=== PATIENT | female | born 1965 | race Caucasian/White ===

== ENCOUNTER 2016-03-25 12:15 | Emergency (ER) | payer SELFPAY ==
--- NOTE | 2016-03-25 13:44 | EKG ---
[facility] [address] [place] [address] Test Date: 2016-03-25 Test Time: 12:32:02 Pat Name: SHALINI PACHECO Department: Room: Gender: F [employer]aker Machine Tender: : 1965 Requested By: ROSS BAI Order Number: [id number] Reading MD: Andrey Brody Measurements Intervals [place] Rate: 79 P: 0 GA: 138 QRS: 23 QRSD: 96 T: 10 QT: 414 QTc: 476 Interpretive Statements SINUS RHYTHM PROLONGED QT Electronically Signed On 03-25-2016 15:19:54 SUGAR GRINDER by Andrey Brody
--- NOTE | 2016-03-25 13:48 | RAD ---
Exam performed: One view chest. Indication: Chest pain and weakness for one week. High blood pressure Date of Service: 03/25/2016 3:21 PM Comparison: 10/25/09. Single AP upright portable view chest findings: Cardiomediastinal silhouette is within limits of normal. No acute infiltrates, effusion or pneumothorax is detected. The bony structures are normal. Impression: No acute cardiopulmonary process is detected.
[2016-03-25 13:56] LABS: BILIRUBIN,URINE NEGATIVE (NEG); GLUCOSE,URINE >=1000 mg/dL (NEG); NITRITE,URINE NEGATIVE (NEG); PROTEIN,URINE NEGATIVE (NEG-TRACE); UROBILINOGEN,URINE 0.2 mg/dL (0.2 mg/dL)
[2016-03-25 13:57] LABS: BASO # 0.1 x10^3/uL (0.0-0.2); BASO % 1 % (0-3); EOS % 1 % (0-3); HEMATOCRIT 42.8 % (36.0-47.0); HEMOGLOBIN 14.1 g/dL (12.0-15.5); LYMPH # 2.3 x10^3/uL (1.0-4.8); LYMPH % 33 % (24-48); MEAN CORPUSCULAR HEMOGLOBIN 29 pg (25-35); MEAN CORPUSCULAR HGB CONC 33 g/dL (31-37); MEAN CORPUSCULAR VOLUME 86 fL (79-100); MONO % 8 % (0-9); NEUT % 57 % (31-73); PLATELET COUNT 283 x10^3/uL (140-400); RED BLOOD COUNT 4.97 x10^6/uL (3.50-5.40); RED CELL DISTRIBUTION WIDTH 13.7 % (11.5-14.5)
[2016-03-25 14:02] LABS: BARBITURATES NEG (NEG); BENZODIAZEPINES NEG (NEG); CANNABINOIDS NEG (NEG); COCAINE NEG (NEG); METHADONE NEG (NEG); OPIATES NEG (NEG); PHENCYCLIDINE NEG (NEG)
[2016-03-25 14:03] LABS: ETHANOL, URINE NEG (NEG)
[2016-03-25 14:08] LABS: CREATININE 0.8 mg/dL (0.6-1.0); GFR 76.6
[2016-03-25 14:14] LABS: ALBUMIN 3.7 g/dL (3.4-5.0); DIRECT BILIRUBIN 0.1 mg/dL (0.0-0.2); TOTAL BILIRUBIN 0.7 mg/dL (0.2-1.0); TOTAL PROTEIN 7.4 g/dL (6.4-8.2)
[2016-03-25 14:27] LABS: BACTERIA,URINE FEW /HPF (0-FEW); RBC,URINE 20-40 /HPF (0-2); SQUAMOUS EPITHELIAL CELL,UR MOD /LPF; WBC,URINE OCC /HPF (0-4)
--- NOTE | 2016-03-25 14:57 | ED.ADGEN ---
Past Medical History Past Medical History: Constipation, Diabetes-Type II, Hypertension, Migraines, MRSA, Additional Disease Additional Past Medical Histor: alopecia totalum, melanoma x2, herniated discs , vertigo Past Surgical History: Appendectomy, Cholecystectomy, Tonsillectomy Additional Past Surgical Histo: partial hysterectomy, herniated discs Alcohol Use: Occasionally Drug Use: None Adult General Chief Complaint Chief Complaint: CHEST PAIN HPI HPI Patient is a 50 year old female presents emergency department complaining of right-sided chest pain. She describes it as a "pressure or burning". She has had it intermittently for the last 1 week. It is gotten worse today. She denies any rashes. She did have a recent upper respiratory infection. She reports significant increase in fatigue over the last several weeks as well. She tells me she has had cardiac workups in the past including normal stress test. She does report increased stress in her life generally at this time. Denies any nausea, vomiting, or diaphoresis. Review of Systems Review of Systems Constitutional: Denies fever or chills. [] Eyes: Denies change in visual acuity. [] HENT: Denies nasal congestion or sore throat. [] Respiratory: Denies cough or shortness of breath. [] Cardiovascular: Denies chest pain or edema. [] GI: Denies abdominal pain, nausea, vomiting, bloody stools or diarrhea. [] : Denies dysuria. [] Musculoskeletal: Denies back pain or joint pain. [] Integument: Denies rash. [] Neurologic: Denies headache, focal weakness or sensory changes. [] Endocrine: Denies polyuria or polydipsia. [] Lymphatic: Denies swollen glands. [] Psychiatric: Denies depression or anxiety. [] Allergies Allergies Allergies Coded Allergies Type Severity Reaction Last Updated Verified Sulfa (Sulfonamide Antibiotics) Allergy Intermediate Shortness of Air Yes cephalexin Allergy Intermediate Rash 01/15/16 Yes doxycycline Allergy Intermediate Hives 01/15/16 Yes Physical Exam Physical Exam Constitutional: Well developed, well nourished, no acute distress, non-toxic appearance. [] HENT: Normocephalic, atraumatic, bilateral external ears normal, oropharynx moist, no oral exudates, nose normal. [] Eyes: PERRLA, EOMI, conjunctiva normal, no discharge. [] Neck: Normal range of motion, no tenderness, supple, no stridor. [] Cardiovascular:Heart rate regular rhythm, no murmur [] Lungs & Thorax: Bilateral breath sounds clear to auscultation, , right anterior chest wall is tender to palpation without any external signs of trauma [] Abdomen: Bowel sounds normal, soft, no tenderness, no masses, no pulsatile masses. [] Skin: Warm, dry, no erythema, no rash. [] Back: No tenderness, no CVA tenderness. [] Extremities: No tenderness, no cyanosis, no clubbing, ROM intact, no edema. [] Neurologic: Alert and oriented X 3, normal motor function, normal sensory function, no focal deficits noted. [] Psychologic: Affect normal, judgement normal, mood normal. [] Current Patient Data Vital Signs Vital Signs Date Time Temp Pulse Resp B/P Pulse Ox O2 Delivery O2 Flow Rate FiO2 03/25/16 12:55 98.5 76 16 178/84 97 Room Air 98.5 Lab Values Laboratory Tests Test 03/25/16 13:30 03/25/16 13:41 Urine Collection Type Unknown Urine Color Yellow Urine Clarity Clear Urine pH 5.0 Urine Specific [place] >=1.030 Urine Protein Negativemg/dL (NEG-TRACE) Urine Glucose (UA) >=1000mg/dL (NEG) Urine Ketones (Stick) Tracemg/dL (NEG) Urine Blood Large (NEG) Urine Nitrite Negative (NEG) Urine Bilirubin Negative (NEG) Urine Urobilinogen Dipstick 0.2mg/dL (0.2 mg/dL) Urine Leukocyte Esterase Negative (NEG) Urine RBC 20-40/HPF (0-2) Urine WBC Occ/HPF (0-4) Urine Squamous Epithelial Cells Mod/LPF Urine Bacteria Few/HPF (0-FEW) Urine Opiates Screen Neg (NEG) Urine Methadone Screen Neg (NEG) Urine Barbiturates Neg (NEG) Urine Phencyclidine Screen Neg (NEG) Urine Amphetamine/Methamphetamine Neg (NEG) Urine Benzodiazepines Screen Neg (NEG) Urine Cocaine Screen Neg (NEG) Urine Cannabinoids Screen Neg (NEG) Urine Ethyl Alcohol Neg (NEG) White Blood Count 7.0x10^3/uL (4.0-11.0) Red Blood Count 4.97x10^6/uL (3.50-5.40) Hemoglobin 14.1g/dL (12.0-15.5) Hematocrit 42.8% (36.0-47.0) Mean Corpuscular Volume 86fL (79-100) Mean Corpuscular Hemoglobin 29pg (25-35) Mean Corpuscular Hemoglobin Concent 33g/dL (31-37) Red Cell Distribution Width 13.7% (11.5-14.5) Platelet Count 283x10^3/uL (140-400) Neutrophils (%) (Auto) 57% (31-73) Lymphocytes (%) (Auto) 33% (24-48) Monocytes (%) (Auto) 8% (0-9) Eosinophils (%) (Auto) 1% (0-3) Basophils (%) (Auto) 1% (0-3) Neutrophils # (Auto) 4.0x10^3uL (1.8-7.7) Lymphocytes # (Auto) 2.3x10^3/uL (1.0-4.8) Monocytes # (Auto) 0.5x10^3/uL (0.0-1.1) Eosinophils # (Auto) 0.1x10^3/uL (0.0-0.7) Basophils # (Auto) 0.1x10^3/uL (0.0-0.2) Sodium Level 136mmol/L (136-145) Potassium Level 4.0mmol/L (3.5-5.1) Chloride Level 98mmol/L (98-107) Carbon Dioxide Level 26mmol/L (21-32) Anion Gap 12 (6-14) Blood Urea Nitrogen 13mg/dL (7-20) Creatinine 0.8mg/dL (0.6-1.0) Estimated GFR (Cockcroft-Gault) 76.6 Glucose Level 283mg/dL (70-99) H Calcium Level 9.0mg/dL (8.5-10.1) Total Bilirubin 0.7mg/dL (0.2-1.0) Direct Bilirubin 0.1mg/dL (0.0-0.2) Aspartate Amino Transferase (AST) 28U/L (15-37) Alanine Aminotransferase (ALT) 43U/L (14-59) Alkaline Phosphatase 69U/L (46-116) Troponin I Quantitative < 0.017ng/mL (0.000-0.055) CJ-Ngq-U-Type Natriuretic Peptide 76pg/mL (0-124) Total Protein 7.4g/dL (6.4-8.2) Albumin 3.7g/dL (3.4-5.0) Laboratory Tests 03/25/16 13:41 Laboratory Tests 03/25/16 13:41 EKG EKG EKG interpreted by me, normal sinus rhythm, 70 bpm, prolonged QT, no ST segment elevation [] Radiology/Procedures Radiology/Procedures Exam performed: One view chest. Indication: Chest pain and weakness for one week. High blood pressure Date of Service: 03/25/2016 3:21 PM Comparison: 10/25/09. Single AP upright portable view chest findings: Cardiomediastinal silhouette is within limits of normal. No acute infiltrates, effusion or pneumothorax is detected. The bony structures are normal. Impression: No acute cardiopulmonary process is detected. DICTATED and SIGNED BY: ANDREI MURDOCK MD DATE: 03/25/16 1346 CC: RADHA VENEGAS; ROSS BAI MD ~[] Course & Med Decision Making Course & Med Decision Making Pertinent Labs and Imaging studies reviewed. (See chart for details) Patient looks well here in the emergency department. Overall her workup is reassuring. Her blood glucose is elevated. The patient told me that she was "borderline" diabetic treating it with diet. I did discuss that she needs a follow-up perhaps add more to her regimen. She is return emergency department sooner she develops any new or worsening symptoms. [] Dragon Disclaimer Dragon Disclaimer This electronic medical record was generated, in whole or in part, using a voice recognition dictation system. ROSS BAI MD Mar 25, 2016 14:57
[2016-03-25 15:03] VITALS: BP 128/58
== END 2016-03-25 15:08 | disposition home or self-care (01) ==
LOC: ER 12:15
DX: R07.89 Other chest pain (principal); E11.9 Type 2 diabetes mellitus without complications; I10 Essential (primary) hypertension; Z88.1 Allergy status to other antibiotic agents; Z88.2 Allergy status to sulfonamides
CPT/HCPCS: 36415; 71010; 80048; 80076; 81001; 83880; 84484; 85027; 93005; 99285; G0481

== ENCOUNTER 2016-04-13 15:26 | Emergency (ER) | payer SELFPAY ==
[~2016-04-13] VITALS: Ht 170.2 cm; Wt 113.4 kg
[2016-04-13 15:30] VITALS: BP 170/88
[2016-04-13] MEDS ORDERED: ONDANSETRON PF 4 MG/2 ML VIAL. IV ONE (16:00)
[2016-04-13] MEDS ORDERED: IV NORMAL SALINE 1000ML BAG 1,000 ML IV ONE (16:00)
[2016-04-13] MEDS ORDERED: HYDROMORPHONE 2 MG/ML VIAL. IV ONE (16:00)
--- NOTE | 2016-04-13 16:27 | RAD ---
PROCEDURE Abdomen and pelvis CT without contrast. HISTORY Right flank pain. TECHNIQUE Computed tomographic images of the abdomen pelvis were obtained without contrast. One or more of the following individualized dose reduction techniques were utilized for this examination: 1. Automated exposure control; 2. Adjustment of the mA and/or kV according to patient size; 3. Use of iterative reconstruction technique. COMPARISON 01/15/2016 FINDINGS Evaluation of the lower thorax demonstrates right greater than left lower lobe and lingular atelectasis. There is a 2 mm nodule within the left lung base which appears partially calcified and is likely a granuloma. The heart is normal in size. There is hepatomegaly and hepatic steatosis the gallbladder is surgically absent. The pancreas, spleen and adrenal glands are unremarkable. There is a 5 mm calcification along the course of the distal right ureter slightly proximal to the ureterovesical junction. There is no significant corresponding obstructive uropathy. There is a 2 mm nonobstructing stone within the mid zone of the right kidney. There is patchy increased density within both kidneys likely due to a component of nephrocalcinosis. There is increased mural fat within the proximal colon, a finding which can be seen as sequela of prior inflammation. There is moderate colonic stool. There is no obstruction. The uterus is surgically absent. There are small left ovarian follicles. There is no pathologically enlarged lymph node. There are degenerative changes of the lower lumbar levels. This includes a posterior central disc protrusion and endplate osteophytosis at L3-L4 and bilateral foraminal to lateral disc osteophyte complexes at L5-S1. This results in moderate central canal stenosis L3-L4 and severe bilateral foraminal stenosis at L5-S1. IMPRESSION 1. 5 mm calcification along the course of the distal right ureter, stable compared to the prior study. The stability of this finding and absence of associated obstructive uropathy suggest that this is actually a pelvic phlebolith immediately adjacent to the ureter rather than a ureteral stone. 2. 2 mm nonobstructing stone within the right kidney and patchy hyperdensity within both kidneys suggesting a component of nephrocalcinosis. 3. Hepatomegaly and hepatic steatosis. 4. Patchy opacity within the right greater than left lower lobes and lingula, likely due to atelectasis. 5. Multilevel degenerative change within the lumbar spine, resulting in stenosis as described above. 6. Note is made that the previously demonstrated cystic structure within the right lower quadrant likely associated with the right ovary has resolved. Electronically signed by: Agnes Kim (Apr 13, 2016 16:25:02)
[2016-04-13 16:32] LABS: BASO % 1 % (0-3); EOS % 2 % (0-3); HEMATOCRIT 42.4 % (36.0-47.0); LYMPH % 32 % (24-48); MEAN CORPUSCULAR HEMOGLOBIN 29 pg (25-35); MEAN CORPUSCULAR HGB CONC 33 g/dL (31-37); MEAN CORPUSCULAR VOLUME 86 fL (79-100); MONO % 7 % (0-9); NEUT % 59 % (31-73); PLATELET COUNT 289 x10^3/uL (140-400); RED BLOOD COUNT 4.91 x10^6/uL (3.50-5.40); RED CELL DISTRIBUTION WIDTH 13.7 % (11.5-14.5); WHITE BLOOD COUNT 6.2 x10^3/uL (4.0-11.0)
[2016-04-13 16:34] LABS: GLUCOSE,URINE NEGATIVE (NEG)
[2016-04-13 16:42] LABS: CALCIUM 9.4 mg/dL (8.5-10.1); CREATININE 0.8 mg/dL (0.6-1.0); GFR 76.6; POTASSIUM 4.1 mmol/L (3.5-5.1)
[2016-04-13 16:46] LABS: BACTERIA,URINE MANY /HPF (0-FEW); SQUAMOUS EPITHELIAL CELL,UR MANY /LPF; WBC,URINE 20-40 /HPF (0-4)
[2016-04-13 16:48] LABS: ALBUMIN 3.7 g/dL (3.4-5.0); TOTAL BILIRUBIN 0.7 mg/dL (0.2-1.0); TOTAL PROTEIN 7.3 g/dL (6.4-8.2)
[2016-04-13] MEDS ORDERED: NITR100C PO (17:32)
[2016-04-13] MEDS ORDERED: PHEN-318 PO (17:32)
[2016-04-13] MEDS ORDERED: TRAM-29 PO (17:32)
--- NOTE | 2016-04-13 17:32 | PHYS DOC ---
Past Medical History Past Medical History: Constipation, Diabetes-Type II, Hypertension, Migraines, MRSA, Additional Disease Additional Past Medical Histor: alopecia totalum, melanoma x2, herniated discs , vertigo Past Surgical History: Appendectomy, Cholecystectomy, Tonsillectomy Additional Past Surgical Histo: partial hysterectomy, herniated discs Alcohol Use: Occasionally Drug Use: None Adult General Chief Complaint Chief Complaint: ABDOMINAL PAIN HPI HPI Patient is a 50 year old female who reports she has a history significant for kidney stones in the past, type 2 diabetes, status post appendectomy, breast reduction, partial hysterectomy, presents here today complaining of right-sided abdominal pain since Friday. Patient reports the pain has been constant. She reports it does not feel similar to her prior kidney stone pain. Patient reports that nausea vomiting and some diarrhea. Patient denies any fevers shaking chills. Patient has any chest pain or shortness of breath. Patient has any recent cough or URI symptoms. Patient reports that she went to see her primary care physician a couple days ago and she was diagnosed with a possible urinary tract infection and given Pyridium. Patient reports that the Pyridium initially helped her discomfort however she has stopped using it and the pain came back. Patient was wondering whether or not the antibiotic might not be working well. Patient reports positive dysuria and urgency. No hematuria. Tolerating by mouth's well Patient's physical exam was unremarkable. Patient's vital signs are stable. Patient does have some tenderness to palpation to her abdomen. There is no rebound or guarding. Patient is NABS. Patient has no signs or symptoms that would be consistent with an acute surgical abdomen. Patient has mild tenderness to her right flank region to palpation. Patient's workup in the ER has been significant for a UA that was positive for white cells. Patient's CT scan of her abdomen and pelvis was unremarkable. A copy of the CT scan was given to the patient. Patient was given hydration and analgesia in the ER and currently is pain-free. I discussed with the patient the CT scan as well as her lab results. A/P abdominal pain and right flank pain. Patient presents to the ER with pain that was atypical to her kidney stone pain. Patient's workup in the ER was positive for urinary tract infection. I suspect that the patient's UTI is resistant to the ciprofloxacin that her doctor prescribed. I will go ahead and switch her over to Macrobid and write her for a couple more days of Pyridium and some Ultram to assist her with her discomfort. Patient is to follow-up with her primary care physician for repeat UA to ensure resolution of her infection. Patient was instructed to return to the ER for any fevers or any other problems or worsening pain. Review of Systems Review of Systems Constitutional: Denies fever or chills [] Eyes: Denies change in visual acuity, redness, or eye pain [] HENT: Denies nasal congestion or sore throat [] All other review of systems are negative except as documented in the history of present illness portion. Current Medications Current Medications Current Medications Medications (Trade) Dose Ordered Sig/Geena Start Time Stop Time Status Last Admin Dose Admin Hydromorphone HCl 0.5 mg 0.5 mg 1X ONCE 04/13/16 16:00 04/13/16 16:01 DC 04/13/16 16:35 0.5 MG Ondansetron HCl (Zofran) 4 mg 1X ONCE 04/13/16 16:00 04/13/16 16:01 DC 04/13/16 16:34 4 MG Sodium Chloride (Iv Sodium Chloride 0.9% 1000ml Bag) 1,000 ml @ 999 mls/hr 1X ONCE 04/13/16 16:00 04/13/16 17:00 DC 04/13/16 16:34 999 MLS/HR Allergies Allergies Allergies Coded Allergies Type Severity Reaction Last Updated Verified Sulfa (Sulfonamide Antibiotics) Allergy Intermediate Shortness of Air Yes cephalexin Allergy Intermediate Rash 01/15/16 Yes doxycycline Allergy Intermediate Hives 01/15/16 Yes Physical Exam Physical Exam Constitutional: Well developed, well nourished, no acute distress, non-toxic appearance. [] HENT: Normocephalic, atraumatic, bilateral external ears normal, oropharynx moist, no oral exudates, nose normal. [] Eyes: PERRLA, EOMI, conjunctiva normal, no discharge. [] Neck: Normal range of motion, no tenderness, supple, no stridor. [] Cardiovascular:Heart rate regular rhythm, no murmur [] Lungs & Thorax: Bilateral breath sounds clear to auscultation [] Abdomen: See above Skin: Warm, dry, no erythema, no rash. [] Back: No tenderness, no CVA tenderness. [] Extremities: No tenderness, no cyanosis, no clubbing, ROM intact, no edema. [] Neurologic: Alert and oriented X 3, normal motor function, normal sensory function, no focal deficits noted. [] Psychologic: Affect normal, judgement normal, mood normal. [] Current Patient Data Vital Signs Vital Signs Date Time Temp Pulse Resp B/P Pulse Ox O2 Delivery O2 Flow Rate FiO2 04/13/16 15:30 97.6 68 14 170/88 98 Room Air 97.6 Lab Values Laboratory Tests Test 04/13/16 15:30 04/13/16 16:19 Urine Collection Type Unknown Urine Color [place] Urine Clarity Cloudy Urine pH 5.0 Urine Specific [place] 1.025 Urine Protein mg/dL (NEG-TRACE) Urine Glucose (UA) Negativemg/dL (NEG) Urine Ketones (Stick) mg/dL (NEG) Urine Blood Trace (NEG) Urine Nitrite (NEG) Urine Bilirubin (NEG) Urine Urobilinogen Dipstick 1.0mg/dL (0.2 mg/dL) Urine Leukocyte Esterase (NEG) Urine RBC 1-2/HPF (0-2) Urine WBC 20-40/HPF (0-4) Urine Squamous Epithelial Cells Many/LPF Urine Bacteria Many/HPF (0-FEW) Urine Mucus Mod/LPF White Blood Count 6.2x10^3/uL (4.0-11.0) Red Blood Count 4.91x10^6/uL (3.50-5.40) Hemoglobin 14.0g/dL (12.0-15.5) Hematocrit 42.4% (36.0-47.0) Mean Corpuscular Volume 86fL (79-100) Mean Corpuscular Hemoglobin 29pg (25-35) Mean Corpuscular Hemoglobin Concent 33g/dL (31-37) Red Cell Distribution Width 13.7% (11.5-14.5) Platelet Count 289x10^3/uL (140-400) Neutrophils (%) (Auto) 59% (31-73) Lymphocytes (%) (Auto) 32% (24-48) Monocytes (%) (Auto) 7% (0-9) Eosinophils (%) (Auto) 2% (0-3) Basophils (%) (Auto) 1% (0-3) Neutrophils # (Auto) 3.7x10^3uL (1.8-7.7) Lymphocytes # (Auto) 2.0x10^3/uL (1.0-4.8) Monocytes # (Auto) 0.4x10^3/uL (0.0-1.1) Eosinophils # (Auto) 0.1x10^3/uL (0.0-0.7) Basophils # (Auto) 0.0x10^3/uL (0.0-0.2) Sodium Level 138mmol/L (136-145) Potassium Level 4.1mmol/L (3.5-5.1) Chloride Level 98mmol/L (98-107) Carbon Dioxide Level 31mmol/L (21-32) Anion Gap 9 (6-14) Blood Urea Nitrogen 15mg/dL (7-20) Creatinine 0.8mg/dL (0.6-1.0) Estimated GFR (Cockcroft-Gault) 76.6 BUN/Creatinine Ratio 19 (6-20) Glucose Level 174mg/dL (70-99) H Calcium Level 9.4mg/dL (8.5-10.1) Total Bilirubin 0.7mg/dL (0.2-1.0) Aspartate Amino Transferase (AST) 40U/L (15-37) H Alanine Aminotransferase (ALT) 53U/L (14-59) Alkaline Phosphatase 64U/L (46-116) Total Protein 7.3g/dL (6.4-8.2) Albumin 3.7g/dL (3.4-5.0) Albumin/Globulin Ratio 1.0 (1.0-1.7) Laboratory Tests 04/13/16 16:19 Laboratory Tests 04/13/16 16:19 EKG EKG [] Radiology/Procedures Radiology/Procedures [] Course & Med Decision Making Course & Med Decision Making Pertinent Labs and Imaging studies reviewed. (See chart for details) [] Dragon Disclaimer Dragon Disclaimer This electronic medical record was generated, in whole or in part, using a voice recognition dictation system. Departure Departure Impression: Primary Impression: Abdominal pain Additional Impression: UTI (urinary tract infection) Disposition: HOME, SELF-CARE Condition: IMPROVED Referrals: LY MARIA MD (PCP) Patient Instructions: Abdominal Pain, Urinary Tract Infection Scripts Tramadol Hcl (Ultram)50 Mg Tablet1 Tab PO Q6HRS #14 TAB Prov:ISAAC CHRISTENSEN MD 04/13/16 Phenazopyridine Hcl (Pyridium)200 Mg [id number] Mg PO TID #9 TAB Prov:ISAAC CHRISTENSEN MD 04/13/16 Nitrofurantoin Macrocrystal (Nitrofurantoin)100 Mg Capsule1 Cap PO BID #20 CAP Prov:ISAAC CHRISTENSEN MD 04/13/16 Problem Qualifiers ISAAC CHRISTENSEN MD Apr 13, 2016 17:32
== END 2016-04-13 17:47 | disposition home or self-care (01) ==
LOC: ER 15:26
DX: N39.0 Urinary tract infection, site not specified (principal); E11.9 Type 2 diabetes mellitus without complications; I10 Essential (primary) hypertension; G43.909 Migraine, unspecified, not intractable, without status migrainosus; M48.06 Spinal stenosis, lumbar region; N20.0 Calculus of kidney; Z87.442 Personal history of urinary calculi; Z90.49 Acquired absence of other specified parts of digestive tract; Z86.14 Personal history of Methicillin resistant Staphylococcus aureus infection; Z90.711 Acquired absence of uterus with remaining cervical stump; Z88.1 Allergy status to other antibiotic agents; Z88.2 Allergy status to sulfonamides
CPT/HCPCS: 36415; 74176; 80053; 81001; 85027; 87086; 96361; 96374; 96375; 99285; J1170; J2405; J7030

== ENCOUNTER 2016-04-15 16:49 | Emergency (ER) | payer SELFPAY ==
[~2016-04-15] VITALS: Ht 170.2 cm; Wt 113.4 kg
[~2016-04-15 16:49] MED LIST: NITR100C PO; PHEN-318 PO; TRAM-29 PO
[2016-04-15 19:21] LABS: BILIRUBIN,URINE NEGATIVE (NEG); GLUCOSE,URINE >=1000 mg/dL (NEG); NITRITE,URINE NEGATIVE (NEG); PH,URINE 5.5; PROTEIN,URINE NEGATIVE (NEG-TRACE); UROBILINOGEN,URINE 0.2 mg/dL (0.2 mg/dL)
[2016-04-15 19:31] LABS: BACTERIA,URINE FEW /HPF (0-FEW); RBC,URINE 0 /HPF (0-2); SQUAMOUS EPITHELIAL CELL,UR MOD /LPF
[2016-04-15] MEDS ORDERED: HYDROMORPHONE 2 MG/ML VIAL. IV ONE (21:00)
[2016-04-15] MEDS ORDERED: IV NORMAL SALINE 1000ML BAG 1,000 ML IV ONE (21:00)
[2016-04-15] MEDS ORDERED: ONDANSETRON PF 4 MG/2 ML VIAL. IV ONE (21:00)
[2016-04-15 21:07] LABS: CALCIUM 9.4 mg/dL (8.5-10.1); CREATININE 0.8 mg/dL (0.6-1.0); GFR 76.6
[2016-04-15] MEDS ORDERED: HYDR-2678 PO (21:42)
--- NOTE | 2016-04-15 21:42 | PHYS DOC ---
Past Medical History Past Medical History: Constipation, Diabetes-Type II, Hypertension, Migraines, MRSA, Additional Disease Additional Past Medical Histor: alopecia totalum, melanoma x2, herniated discs , vertigo Past Surgical History: Appendectomy, Cholecystectomy, Tonsillectomy Additional Past Surgical Histo: partial hysterectomy, herniated discs Alcohol Use: Occasionally Drug Use: None Adult General Chief Complaint Chief Complaint: URINARY FREQUENCY HPI HPI Patient is a 50 year old female who is known to me from a prior visit who presents here today secondary to urinary frequency. Patient was seen by me approximately 2 days ago secondary to right flank pain. Patient had a CT scan of urinary tract at that time which revealed likelystones. It did reveal a phlebolith that have been there in the past that was read prior as a stone however given the consistency and the chronicity of that calcification radiology believes that this is more likely a phlebolith rather than a 80 stone. Patient reports that she went home and started to feel better initially however the pain started getting worse again so she came to the ER. Of note the patient was on Cipro by her primary care physician however we switched her over to Macrobid secondary to possibility of resistance. Patient reports that she's taken the Macrobid since she was discharged from here and initially started feeling better and then today started having fevers 202.3 with nausea and pelvic burning. Patient denies any vomiting or diarrhea. Patient denies any abdominal pain this time. Patient denies any vaginal discharge. Patient reports she does have a history of diabetes and hypertension. Patient is status post cholecystectomy, hysterectomy, appendectomy. Patient's physical exam the ED was significant for some mild tenderness to palpation to her suprapubic region. Patient has no rebound or guarding. Patient has normal active bowel sounds. Patient has no signs or symptoms consistent with an acute surgical abdomen at this time. Patient appears comfortable and in good spirits. Patient's ER course was significant for a UA that revealed no evidence of infection at this time. This is an improvement from her UA during her last visit. Patient also had a BMP sent which revealed a elevated blood sugar. This was done because she did have [place] thousand sugar in her urine. I discussed with the patient that her frequency might be secondary to her elevated blood sugar and I discussed with her the possibility of a yeast infection from her high blood sugar. Patient reports she did not have a rash or irritation in her perineal area. While the ER the patient was given a liter of normal saline and pain medicines. I discussed with the patient the possibility an option of repeating her CT scan to see if the phlebolith had moved and if there was a stone there. The patient reports that she would prefer to just obtain medicines help her pain since she gets plenty of CT scans to monitor her cancer. I discussed with the patient that as a viable option and that I would be agreeable to giving her pain medicines and have her reevaluated by her doctor on Friday as scheduled. Given that a positive CT scan for stones would result in pain management I feel that this would be an adequate solution to avoid further radiation of this patient. Patient is very happy with this plan and is in complete agreement. Patient was given Dilaudid in the ER and feels much improved. Review of Systems Review of Systems Constitutional: Denies fever or chills [] Eyes: Denies change in visual acuity, redness, or eye pain [] HENT: Denies nasal congestion or sore throat [] All other review systems are negative except as documented by the history of present illness portion. Current Medications Current Medications Current Medications Medications (Trade) Dose Ordered Sig/Geena Start Time Stop Time Status Last Admin Dose Admin Hydromorphone HCl (Dilaudid) 0.5 mg 1X ONCE 04/15/16 21:00 04/15/16 21:01 DC 04/15/16 21:07 0.5 MG Ondansetron HCl 4 mg 4 mg 1X ONCE 04/15/16 21:00 04/15/16 21:01 DC 04/15/16 21:07 4 MG Sodium Chloride (Iv Sodium Chloride 0.9% 1000ml Bag) 1,000 ml @ 999 mls/hr 1X ONCE 04/15/16 21:00 04/15/16 22:00 04/15/16 21:06 999 MLS/HR Allergies Allergies Allergies Coded Allergies Type Severity Reaction Last Updated Verified Sulfa (Sulfonamide Antibiotics) Allergy Intermediate Shortness of Air Yes cephalexin Allergy Intermediate Rash 01/15/16 Yes doxycycline Allergy Intermediate Hives 01/15/16 Yes Physical Exam Physical Exam Constitutional: Well developed, well nourished, no acute distress, non-toxic appearance. [] HENT: Normocephalic, atraumatic, bilateral external ears normal, oropharynx moist, no oral exudates, nose normal. [] Eyes: PERRLA, EOMI, conjunctiva normal, no discharge. [] Neck: Normal range of motion, no tenderness, supple, no stridor. [] Cardiovascular:Heart rate regular rhythm, no murmur [] Lungs & Thorax: Bilateral breath sounds clear to auscultation [] Abdomen: Bowel sounds normal, soft, no masses, no pulsatile masses. [] Skin: Warm, dry, no erythema, no rash. [] Back: No tenderness, no CVA tenderness. [] Extremities: No tenderness, no cyanosis, no clubbing, ROM intact, no edema. [] Neurologic: Alert and oriented X 3, normal motor function, normal sensory function, no focal deficits noted. [] Psychologic: Affect normal, judgement normal, mood normal. [] Current Patient Data Vital Signs Vital Signs Date Time Temp Pulse Resp B/P Pulse Ox O2 Delivery O2 Flow Rate FiO2 04/15/16 19:30 98.6 68 18 164/94 97 Room Air 98.6 Lab Values Laboratory Tests Test 04/15/16 18:45 04/15/16 19:20 Urine Color Yellow Urine Clarity Clear Urine pH 5.5 Urine Specific Holland 1.025 Urine Protein Negativemg/dL (NEG-TRACE) Urine Glucose (UA) >=1000mg/dL (NEG) Urine Ketones (Stick) Negativemg/dL (NEG) Urine Blood Negative (NEG) Urine Nitrite Negative (NEG) Urine Bilirubin Negative (NEG) Urine Urobilinogen Dipstick 0.2mg/dL (0.2 mg/dL) Urine Leukocyte Esterase Negative (NEG) Urine RBC 0/HPF (0-2) Urine WBC 1-4/HPF (0-4) Urine Squamous Epithelial Cells Mod/LPF Urine Bacteria Few/HPF (0-FEW) Urine Mucus Slight/LPF Sodium Level 138mmol/L (136-145) Potassium Level 4.0mmol/L (3.5-5.1) Chloride Level 99mmol/L (98-107) Carbon Dioxide Level 30mmol/L (21-32) Anion Gap 9 (6-14) Blood Urea Nitrogen 14mg/dL (7-20) Creatinine 0.8mg/dL (0.6-1.0) Estimated GFR (Cockcroft-Gault) 76.6 Glucose Level 231mg/dL (70-99) H Calcium Level 9.4mg/dL (8.5-10.1) Laboratory Tests 04/15/16 19:20 EKG EKG [] Radiology/Procedures Radiology/Procedures [] Course & Med Decision Making Course & Med Decision Making Pertinent Labs and Imaging studies reviewed. (See chart for details) [] Dragon Disclaimer Dragon Disclaimer This electronic medical record was generated, in whole or in part, using a voice recognition dictation system. Departure Departure Impression: Primary Impression: Abdominal pain Additional Impressions: Hyperglycemia UTI (urinary tract infection) Disposition: HOME, SELF-CARE Condition: IMPROVED Referrals: LY MARIA MD (PCP) Patient Instructions: Hyperglycemia, Urinary Tract Infection Scripts Hydrocodone/Acetaminophen (Lortab 5-325 mg Tablet)1 Each Tablet1 Tab PO PRN Q6HRS PRN PAIN #15 TAB Prov:ISAAC CHRISTENSEN MD 04/15/16 Problem Qualifiers ISAAC CHRISTENSEN MD Apr 15, 2016 21:42
[2016-04-15 21:50] VITALS: BP 146/74
== END 2016-04-15 21:52 | disposition home or self-care (01) ==
LOC: ER 16:49
DX: N39.0 Urinary tract infection, site not specified (principal); E11.65 Type 2 diabetes mellitus with hyperglycemia; I10 Essential (primary) hypertension; G43.909 Migraine, unspecified, not intractable, without status migrainosus; L65.9 Nonscarring hair loss, unspecified; Z86.14 Personal history of Methicillin resistant Staphylococcus aureus infection; Z88.2 Allergy status to sulfonamides; Z88.1 Allergy status to other antibiotic agents; Z90.710 Acquired absence of both cervix and uterus; Z90.49 Acquired absence of other specified parts of digestive tract
CPT/HCPCS: 36415; 80048; 81001; 96361; 96374; 96375; 99284; J1170; J2405; J7030

== ENCOUNTER → 2017-10-15 | Day surgery (SDC) | payer MEDICARE, OTHER ==
[~2017-10-15] VITALS: Ht 167.6 cm; Wt 82.1 kg
[~2017-10-15] MED LIST changes: +0.9 % SODIUM CHLORIDE 10 ML DISP.SYRIN. IV PRN; +BUPIVACAINE-EPI 0.25%-1:200000 50 ML VIAL. ONE; +CALC500T54 PO; +CALCIUM CARBONATE 500 MG TAB.CHEW PO PRN; +CETI10TA22 PO; +CHOL2000 PO; +CLINDAMYCIN 900MG PREMIX 50 ML IV PRN; +DEXAMETHASONE SOD PHOS 20 MG/5 ML VIAL. ONE; +ESTROGENS, CONJ VAGINAL CREAM 30GM TUBE. ONE; +FLUO40CA9 PO; +FLUT12AE IH; +GLYCOPYRROLATE 1 MG/5 ML VIAL. ONE; +HYDR-2678 PO; +HYDROcodone/APAP 5/325MG 1 TAB TABLET PO PRN; +HYDROmorphone 2 MG/ML VIAL ONE; +IV RINGERS,LACTATED 1000ML 1,000 ML IV SCH; +KETOROLAC 30 MG/ML INJ FOR OR. INJ ONE; +LACT1CAP29 PO; +LIDOCAINE 1% PF 2 ML VIAL. ID PRN; +MAG HYDROX/ALUMINUM HYD/SIMETH 30 ML ORAL.SUSP PO PRN; +METOCLOPRAMIDE HCL 10 MG/2 ML VIAL. ONE; +MIDAZOLAM HCL/PF 2 MG/2 ML VIAL. ONE; +MORPHINE SULFATE 2 MG/ML VIAL. ONE; +NALOXONE 0.4 MG/ML VIAL. IV PRN; +OMEP20CA9 PO; +ONDANSETRON PF 4 MG/2 ML VIAL. IV PRN; +ONDANSETRON PF 4 MG/2 ML VIAL. ONE; +OXYC-323 PO; +PROCHLORPERAZINE 10 MG/2 ML VIAL. IV PRN; +SCOPOLAMINE 1.5MG PATCH. TD ONE; +SIMETHICONE 80 MG TAB.CHEW PO PRN; +SUCCINYLCHOLINE 200 MG/10 ML VIAL. ONE; +SUCR1TAB35 PO; +TOPI100T42 PO; -TRAM-29 PO; +TRAM-48 PO; +diphenhydrAMINE 50 MG/ML VIAL IV PRN; +diphenhydrAMINE HCL 25 MG CAPSULE PO PRN; +fentaNYL PF VIAL 100 MCG/2 ML VIAL ONE; +oxyCODONE/APAP 5/325 1 TAB TABLET PO ONE
--- NOTE | 2017-10-15 10:54 | PDOC ---
BRIEF OPERATIVE NOTE Date: Oct 15, 2017 Pre-Op Diagnosis symptomatic cystocele and rectocele Post-Op Diagnosis same Procedure Performed anterior and posterior repair with perineoplasty Surgeon Dr. Eboni Healy Anesthesiologist Dr. Steven Anesthesia Type: General Blood Loss 30cc IV Fluid see anesthesia records Urine Output 50cc clear via segura Specimens Obtained none Findings 2 cystocele, 2-3 rectocele with some scar tissue on posterior vaginal side, kristi right side Complications none Operative Note [id number] EBONI HEALY MD Oct 15, 2017 10:54
[2017-10-15] MEDS: fentaNYL PF VIAL 100 MCG/2 ML VIAL IV PRN ×4 (11:10→12:14)
--- NOTE | 2017-10-15 11:52 | OP ---
DATE OF SURGERY: 10/15/2017 PREOPERATIVE DIAGNOSES: Symptomatic cystocele, second degree and rectocele, second to third degree. POSTOPERATIVE DIAGNOSES: Symptomatic cystocele, second degree and rectocele, second to third degree. PROCEDURE: Anterior and posterior repair with perineoplasty. SURGEON: Justyn Healy M.D. SHIPPING HELPER: OR personnel. ANESTHESIOLOGIST: Porter Steven M.D. ANESTHESIA: General. ESTIMATED BLOOD LOSS: 30 mL. INTRAVENOUS FLUIDS: Please see anesthesia records. URINE OUTPUT: With 50 mL clear via German. SPECIMENS: None. She had a few pieces of anterior and posterior vaginal mucosa that I did not send. FINDINGS: Second-degree cystocele with minimal scarring and [id number] degree, rectocele with some scarring from previous surgery on the posterior vaginal wall, especially the right side. COMPLICATIONS: None. DESCRIPTION OF PROCEDURE: This patient was taken to the operating room, where general anesthesia was placed. The patient was placed in dorsal lithotomy position in Kevin stirrups. The patient's vagina was prepped and draped in the normal sterile fashion and a German catheter had been inserted under sterile technique. After a timeout was performed, a weighted speculum was placed in the patient's vagina. Allises were placed on the vaginal cuff. She was injected with 200 mL of injectable saline to 50 mL of 0.25% Marcaine with epinephrine. So a dilute solution 20 mL was used on the anterior and a knife was used to make a vertical incision. Allis clamps were placed here. Metzenbaum scissors were used to open it up to just about 1-2 cm below the urethral opening, where the Felix began. Once it was done, the Metzenbaums were used to sharply dissect the edge away and then the open Ray-Prema was used to bluntly push it down. I believe 5 interrupted 2-0 Vicryl sutures were used. They were first placed and then tagged and then going back and reducing the defect and tying them was used and it reduced very well. Minimal tissue was trimmed here and it was closed with a full-length 2-0 Vicryl in a running locked fashion and the anterior repair had minimal bleeding and was very easy to fix. At this point, the weighted speculum was removed and Glenn's were placed at 4 and 7 o'clock at the introitus. A 40 mL of that dilute injectable solution of the saline and local mixture was used on the posterior repair in the perineum. A mehul-shaped area was taken out of the introitus and the perineal body with the knife. It was cut off and then the Metzenbaum scissors were used again to open up the posterior defect. It was a very large defect. Allis clamps were used to go all the way up to the vaginal cuff again and it was reduced. There was some significant scarring on the right side. It was taken down, but it did tear on this right side and it made it more difficult to close and to see because when taking it down, it did tear because of the scarring and adhesions on this right posterior vaginal wall. Once the defect was reduced, I believe, at least 7 or 8 interrupted 2-0 Vicryl sutures were used to reduce the defect and then I had to close from the midline to the right side first where it tore half way down and then I used a full length 2-0 Vicryl to close from the vaginal cuff down in a running locked fashion, but when I tried to go all the way over, it pulled it way over and attenuated and almost pulled it up anteriorly too much because of that tear and attenuation. So I repaired the tear first from the sidewall to the midline and then sewed the edges over. I trimmed some of the left side. I did not trim any on the right, but I left it kind of looser and long on that left side, so it could gently rack puller to that tear on the right and not attenuate it or stretch it too much. I closed in a running locked fashion. When I got to the introitus, I pulled it together, went under and basically did almost like an episiotomy repair, pulling the perineum together with 2 or 3 interrupted sutures and then going down to the apex and placing a subcuticular stitch up, closing the perineal skin over the perineal body and taking it back up and tying in the vagina. Everything looked really good. I did put some Premarin cream and vaginal packing in her, but all sponge, lap and needle counts were correct x 2 by OR personnel. The patient, after being awakened from anesthesia, was brought to recovery room in stable condition. JUSTYN HEALY MD DR: MICHAEL/marco JOB#: [id number] / [id number]
[2017-10-15] MEDS: MORPHINE SULFATE 2 MG/ML VIAL. IV PRN ×2 (12:08→12:26)
[2017-10-15] MEDS: HYDROmorphone 2 MG/ML VIAL IV PRN ×2 (12:36→12:53)
[2017-10-15 14:05] VITALS: BP 106/74
== END | disposition home or self-care (01) ==
LOC: SURG 07:27
PROVIDERS: ATTEND Obstetrics & Gynecology
DX: N81.10 Cystocele, unspecified (principal); N81.6 Rectocele; I10 Essential (primary) hypertension; E11.9 Type 2 diabetes mellitus without complications; J45.909 Unspecified asthma, uncomplicated; E66.9 Obesity, unspecified; F41.9 Anxiety disorder, unspecified; F32.9 Major depressive disorder, single episode, unspecified; K21.9 Gastro-esophageal reflux disease without esophagitis; Z90.49 Acquired absence of other specified parts of digestive tract; Z98.890 Other specified postprocedural states; Z79.899 Other long term (current) drug therapy; Z90.710 Acquired absence of both cervix and uterus
CPT/HCPCS: 57260; J0330; J1100; J1170; J1885; J1956; J2250; J2270; J2405; J2765; J3010; J3490; J7120; A7015

== ENCOUNTER → 2018-11-16 | Outpatient (CLI) | payer MEDICARE ==
[2017-10-15 14:05] VITALS: BP 106/74
[~2018-11-16] MED LIST changes: -0.9 % SODIUM CHLORIDE 10 ML DISP.SYRIN. IV PRN; -BUPIVACAINE-EPI 0.25%-1:200000 50 ML VIAL. ONE; -CALCIUM CARBONATE 500 MG TAB.CHEW PO PRN; -CLINDAMYCIN 900MG PREMIX 50 ML IV PRN; -DEXAMETHASONE SOD PHOS 20 MG/5 ML VIAL. ONE; -ESTROGENS, CONJ VAGINAL CREAM 30GM TUBE. ONE; -GLYCOPYRROLATE 1 MG/5 ML VIAL. ONE; -HYDROcodone/APAP 5/325MG 1 TAB TABLET PO PRN; -HYDROmorphone 2 MG/ML VIAL ONE; -IV RINGERS,LACTATED 1000ML 1,000 ML IV SCH; -KETOROLAC 30 MG/ML INJ FOR OR. INJ ONE; -LIDOCAINE 1% PF 2 ML VIAL. ID PRN; -MAG HYDROX/ALUMINUM HYD/SIMETH 30 ML ORAL.SUSP PO PRN; -METOCLOPRAMIDE HCL 10 MG/2 ML VIAL. ONE; -MIDAZOLAM HCL/PF 2 MG/2 ML VIAL. ONE; -MORPHINE SULFATE 2 MG/ML VIAL. ONE; -NALOXONE 0.4 MG/ML VIAL. IV PRN; +OMEP20CA10 PO; -OMEP20CA9 PO; -ONDANSETRON PF 4 MG/2 ML VIAL. IV PRN; -ONDANSETRON PF 4 MG/2 ML VIAL. ONE; -OXYC-323 PO; +OXYC1TAB15 PO; -PROCHLORPERAZINE 10 MG/2 ML VIAL. IV PRN; -SCOPOLAMINE 1.5MG PATCH. TD ONE; -SIMETHICONE 80 MG TAB.CHEW PO PRN; -SUCCINYLCHOLINE 200 MG/10 ML VIAL. ONE; -diphenhydrAMINE 50 MG/ML VIAL IV PRN; -diphenhydrAMINE HCL 25 MG CAPSULE PO PRN; -fentaNYL PF VIAL 100 MCG/2 ML VIAL ONE; -oxyCODONE/APAP 5/325 1 TAB TABLET PO ONE
--- NOTE | 2018-11-16 13:25 | KCIC ---
MRI Cervical Spine Without Contrast History: Cervical radiculopathy, left arm pain for 1.5 years Technique: Multiplanar, multi sequential noncontrast MR imaging was performed of the cervical spine. Comparison: None Findings: Cervical cord caliber is within normal limits without defined or expansile signal abnormality. Cervical vertebral body stature is overall maintained. There is negligible posterior subluxation C5 relative to C6. There is moderate degenerative disc disease C5-6 and to lesser degree C3-4 and C4-C5. There is no significant marrow edema of the vertebral bodies. C2-C3: Neural foramina and spinal canal are adequate. C3-C4: There is minimal disc osteophyte complex and central bulge. Spinal canal is adequate. There is severe left facet degenerative change. There is uncovertebral degenerative change greater on the left. There is mild to moderate narrowing of the left neural foramen, right neural foramen overall adequate. C4-C5: There is negligible disc osteophyte complex and bulge. Central canal is adequate about 12 to 13 mm. There is facet degenerative change bilaterally. There is very minimal posterior narrowing of the left neural foramen. C5-C6: There is disc osteophyte complex and bulge. Central canal is borderline about 10 mm. There is uncovertebral degenerative change bilaterally. There is minimal narrowing of the left neural foramen, moderate to severe narrowing on the right. C6-C7: Spinal canal and the neural foramina are adequate. There is bilateral facet hypertrophic change. C7-T1: Neural foramina and spinal canal are adequate. Impression: 1. There is no significant cervical spinal stenosis, borderline narrowing at C5-6. There is degenerative disc disease greatest at C5-6 and to lesser degree C3-4 and C4-5, spondylosis at the same levels. 2. There is multilevel facet and uncovertebral degenerative change. There is moderate to severe narrowing of the right C5-6 neural foramen, lesser degree narrowing on the left at C3-4 and minimal narrowing on the left at C4-C5 and C5-6. Electronically signed by: Nestor Obregon MD (11/16/2018 1:22 PM) [id number]
== END | disposition home or self-care (01) ==
LOC: KCIC MRI 09:06
PROVIDERS: ATTEND Orthopaedic Surgery
DX: M50.11 Cervical disc disorder with radiculopathy, high cervical region (principal); M48.02 Spinal stenosis, cervical region; M47.22 Other spondylosis with radiculopathy, cervical region; M25.78 Osteophyte, vertebrae
CPT/HCPCS: 72141